=== PATIENT | female | born 2000 | race Caucasian/White ===

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

== ENCOUNTER 2023-12-14 01:03 | Inpatient (IN) ==
[2023-12-14] MEDS ORDERED: LIDOCAINE 1% LOCAL 20 ML VIAL INFIL PRN (02:09)
[2023-12-14] MEDS ORDERED: OXYTOCIN 30 UNITS/NSS 30 UNITS/500 ML BAG IV PRN ×2 (02:09→12:16)
[2023-12-14] MEDS ORDERED: ACETAMINOPHEN 500 MG TAB PO PRN (02:09)
--- NOTE | 2023-12-14 02:15 | History & Physical Report ---
Date of Service December 14, 2023 Assessment & Plan (1) LGA (large for gestational age) fetus affecting management of mother: (2) Carrier of group B Streptococcus: (3) Marijuana use during : Plan 23 yo G1 at 38 wga presents w/ prom VSS Fetus cat 1 PROM - discussed pitocin vs expectant mgt, pt accepts GBS+, pcn ordered UDS ordered epidural prn History of Present Illness Chief Complaint: LOF Primary Care Provider: Ivonne Kitchen MD 23 yo G1 at 38 wga presents w/ LOF since 1045. 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 denies hx stis Allergies Allergy/AdvReac Type Severity Reaction Status Date / Time No Known Drug Allergies Allergy Unknown Verified 12/14/23 01:26 Home Medications Medication Instructions Recorded Confirmed Type vit 122-ferrous fumarate 1 tab PO DAILY 09/15/23 12/14/23 History 27 mg iron-folic acid 800 mcg tablet ( Multi) Patient History Medical History COVID-19 (04/2020) COVID-19 (08/2021) Congestion of nasal sinus Anxiety took zoloft for a short time about 2years ago Acetaminophen overdose Intentional acetaminophen overdose Surgical History S/P wisdom tooth extraction Family History Father Hypertension Grandfather (Maternal) Prostate cancer Grandmother (Maternal) Skin cancer Grandmother (Paternal) Breast cancer Mother Alcoholism Other Attention deficit COPD (chronic obstructive pulmonary disease) Social History Smoking Status: Former smoker Tobacco Type: E-cigarettes / Vaping Second Hand Exposure: No; Do You Dip or Chew Tobacco: No; Hx Alcohol Use: No Hx Substance Use: Yes Prescribed Medications: Marijuana Last Used Substance: D ays (ago) Last Used Substance Other:: 2x per week Preferred Language: Turkish Communication Ability: Effective Sharples Machine Operator Required: No Beliefs That Will Affect Care: None marital status: Single marital status details: Kaitlin Holme Rocael (27) [phone] Current Living Situation: Significant Other Current Living Situation Comment: with FOB current occupational status: employed current occupation: [employer] Other Information That Helps Us Care for You: No Feels Safe at Home: Yes Safety Concerns: Feels Safe At This Time Assistive Devices: None Physical Exam Genitourinary: OB Exam Abdomen: + vertex and + estimated weight (7-8) Manual OB Exam: + cervical dilation 1 cm, + cervical effacement 90%, + station - 2 and + amniotic fluid (+nitrazine, pooling, ferning) OB Exam Monitor Tracing: + external FHT monitor used, + external uterine monitor used (q3) and + category I (140/mod/+accel/-decel) Results & Data Vital Signs (Past 12 Hours) Vital Signs Temp Pulse Resp BP O2 Del Method 12/14/23 01:31 98.4 F 18 Room Air 12/14/23 01:28 98.4 F 89 18 134/84 Laboratory Results OB Labs: Blood Type A Positive 07/14/23 Antibody Screen NEGATIVE 07/14/23 Hgb 10.7 g/dl (12.0-16.0) L 10/13/23 Hct 33.8 % (37.0-47.0) L 10/13/23 MCV 89.5 fL (80.0-100.0) 07/14/23 Plt Count 210 K/uL (130-400) 07/14/23 Rubella IgG Antibody Immune (Immune) 07/14/23 RPR Nonreactive (Nonreactive) 07/14/23 Hep Bs Antigen NON-REACTIVE (NON-REACTIVE) 07/14/23 Hepatitis C Ab (EIA) NON-REACTIVE (NON-REACTIVE) 07/14/23 HIV (1&2) Ag & Ab Conf NON-REACTIVE (NON-REACTIVE) 07/14/23 Glucose 1 Hr 50 gm 118 mg/dl (70-130) 10/13/23 OB Optional Labs: Chlamydia trachomatis RNA Not Detected (NotDetected) 07/14/23 Neisseria gonorrhoeae RNA Not Detected (NotDetected) 07/14/23 Thyroid Stimulating Hormone (TSH) 0.824 uIu/ml (0.300-4.500) 12/03/22 Diagnostic Findings 9/ EFW 93%, AC 98%, post plac Coding Level of Care Code None Diagnoses LGA (large for gestational age) fetus affecting management of mother O36.60X0 Carrier of group B Streptococcus Z22.330 Marijuana use during O99.320; F12.90
[2023-12-14] MEDS: LACTATED RINGER'S 1,000 ML IV PRN (02:20)
[2023-12-14] MEDS: PENICILLIN GK 6 MU in DEXTROSE 5% 250 ML IV STA (02:39)
[2023-12-14] MEDS: OXYTOCIN 30 UNITS/NSS 30 UNITS/500 ML BAG IV PRN (02:54)
[2023-12-14] MEDS: BUTORPHANOL TARTRATE 2 MG/ML VIAL IV PRN (02:55)
[2023-12-14 03:00] LABS: Hematocrit (blood only) 35.8 % (37.0-47.0); Hemoglobin 11.3 g/dl (12.0-16.0); Mean Corpuscular Hemoglobin 25.5 pg (25.0-34.0); Mean Corpuscular Hgb Conc 31.6 g/dL (32.0-36.0); Mean Corpuscular Volume 80.8 fL (80.0-100.0); Platelet Count 230 K/uL (130-400); RDW Coefficient of Variation 13.6 % (11.5-14.5); RDW Standard Deviation 40.1 fL (36.4-46.3); Red Blood Count 4.43 M/uL (4.20-5.40)
[2023-12-14 03:05] LABS: Amphetamines+Metham, Urine Neg (Neg); Barbiturates, Urine Neg (Neg); Benzodiazepine, Urine Neg (Neg); Cocaine, Urine Neg (Neg); Fentanyl, Urine Neg (Neg); MDMA (Ecstacy), Urine Neg (Neg); Marijuana, Urine Pos (Neg); Methadone, Urine Neg (Neg); Opiate, Urine Neg (Neg); Phencyclidine, Urine Neg (Neg)
[2023-12-14] MEDS: BUPIVACAINE 0.25% PF 30 ML VIAL ONE (04:55)
[2023-12-14] MEDS: LIDOCAINE 2%/EPINEPHRINE 1:200,000 20 ML PF ONE (04:55)
[2023-12-14] MEDS: fentANYL 2 MCG/ML BUPIVacaine 0.125%-NSS 100ML BAG ONE (04:57)
--- NOTE | 2023-12-14 05:02 | Anesthesiology Consultation ---
Date of Service December 14, 2023 Assessment & Plan Chart Review Chart Review: Acceptable Risk for Labor Epidural Consults Requested none History Height/Weight Height: 5 ft 7 in Weight: 86.183 kg Allergies Allergy/AdvReac Type Severity Reaction Status Date / Time No Known Drug Allergies Allergy Unknown Verified 12/14/23 01:26 Medications Home Medications Medication Instructions Recorded Confirmed Last Taken vit 122-ferrous fumarate 1 tab PO DAILY 09/15/23 12/14/23 Unknown 27 mg iron-folic acid 800 mcg tablet ( Multi) Active Medications Generic Name Dose Route Start Last Admin Trade Name Freq PRN Reason Stop Dose Admin Butorphanol Tartrate 1 mg 12/14/23 02:10 12/14/23 02:55 Butorphanol Tartrate 2 Mg/Ml Vial IV 1 mg Q1H PRN Administration Pain Oxytocin 30 units in 500 mls @ 2 mls/hr 12/14/23 02:09 12/14/23 02:54 Pitocin 30 Units/Nss IV 12/16/23 02:08 0.12 units/hr .Q24H PRN 2 mls/hr Labor Induction/Augmentation Administration Protocol 0.12 UNITS/HR Lactated Ringer's 1,000 mls @ 125 mls/hr 12/14/23 02:09 12/14/23 04:58 Lr IV 12/16/23 02:08 125 mls/hr .Q8H PRN Administration L&D Protocol Protocol Past Medical History Medical History COVID-19 (04/2020) COVID-19 (08/2021) Congestion of nasal sinus Anxiety took zoloft for a short time about 2years ago Acetaminophen overdose Intentional acetaminophen overdose Past Family History Family History Father Hypertension Grandfather (Maternal) Prostate cancer Grandmother (Maternal) Skin cancer Grandmother (Paternal) Breast cancer Mother Alcoholism Other Attention deficit COPD (chronic obstructive pulmonary disease) Past Surgical History Surgical History S/P wisdom tooth extraction Social History Smoking Status: Former smoker tobacco type: e-cigarettes Do You Dip or Chew Tobacco: No Hx Alcohol Use: No Hx Substance Use: Yes substance use type: marijuana Last Used Substance: Days (ago) Last Used Substance Other:: 2x per week Physical Exam Vital Signs Last Vital Signs Temp 36.4 C L 12/14/23 04:39 Pulse 107 H 12/14/23 05:01 Resp 18 12/14/23 04:39 BP 117/67 12/14/23 05:01 Pulse Ox 100 12/14/23 04:59 O2 Del Method Room Air 12/14/23 01:31 Testing Laboratory Results 12/14/23 02:39
[2023-12-14] MEDS ORDERED: ROPIVACAINE 0.5% PF 5 MG/ML 20 ML VIAL EPI PRN (05:04)
[2023-12-14] MEDS ORDERED: fentaNYL citrate PF 100 MCG/2 ML VIAL EPI PRN (05:04)
[2023-12-14] MEDS ORDERED: LIDOCAINE 2% MPF LOCAL 5 ML VIAL EPI PRN (05:04)
[2023-12-14] MEDS ORDERED: diphenhydrAMINE 50 MG/ML VIAL IV PRN (05:04)
[2023-12-14] MEDS ORDERED: NALBUPHINE HCL INJ 10 MG/ML AMP IV PRN (05:04)
[2023-12-14] MEDS ORDERED: NALOXONE HCL 1 MG in SODIUM CHLORIDE 0.9% 1,000 ML IV PRN (05:04)
[2023-12-14] MEDS ORDERED: BUPIVACAINE 0.25% PF 30 ML VIAL EPI PRN (05:04)
[2023-12-14] MEDS ORDERED: NALOXONE HCL 0.4 MG/1 ML VIAL/CARP IV PRN (05:04)
[2023-12-14] MEDS ORDERED: ePHEDrine sulfate 50 MG/ML AMP IV PRN (05:04)
[2023-12-14] MEDS ORDERED: fentANYL 2 MCG/ML BUPIVacaine 0.125%-NSS 100ML BAG EPI PRN (05:04)
[2023-12-14] MEDS ORDERED: SODIUM CHLORIDE 0.9% PF INJ 10 ML VIAL EPI PRN (05:04)
[2023-12-14] MEDS: fentaNYL citrate PF 100 MCG/2 ML VIAL ONE (05:05)
[2023-12-14] MEDS: SODIUM CHLORIDE 0.9% PF INJ 10 ML VIAL ONE (05:06)
[2023-12-14] MEDS: ePHEDrine sulfate 50 MG/ML AMP ONE (05:06)
[2023-12-14] MEDS: BUPIVACAINE 0.25% PF 30 ML VIAL EPI STA (05:22)
[2023-12-14] MEDS: fentaNYL citrate PF 100 MCG/2 ML VIAL EPI STA (05:22)
[2023-12-14] MEDS: LIDOCAINE 2%/EPINEPHRINE 1:200,000 20 ML PF EPI STA (05:22)
[2023-12-14] MEDS: SODIUM CHLORIDE 0.9% PF INJ 10 ML VIAL EPI STA (05:23)
[2023-12-14] MEDS: ONDANSETRON INJ 2 MG/ML 2 ML VIAL IV PRN (05:31)
[2023-12-14] MEDS: PENICILLIN GK 3 MU in DEXTROSE 5% 100 ML IV PRN (06:10)
--- NOTE | 2023-12-14 07:50 | Labor Progress Brief Note ---
Date of Service December 14, 2023 Subjective comfortable w/ epidural Assessment & Plan (1) LGA (large for gestational age) fetus affecting management of mother: (2) Carrier of group B Streptococcus: (3) Marijuana use during : Plan 23 yo G1 at 37 wga presents w/ prom VSS Fetus cat 1 PROM - good progress on pit GBS+, pcn ordered UDS ordered epidural in place Admission and Anticipated Discharge Date Admission Date: December 14, 2023 Physical Exam Genitourinary: Manual OB Exam: + cervical dilation (5-6), + cervical effacement 90% and + station 0 OB Exam Monitor Tracing: + external FHT monitor used, + external uterine monitor used (q2-5) and + category I (120/mod/+accel/-decel) Results & Data Vital Signs (Past 12 Hours) Vital Signs Temp Pulse Resp BP Pulse Ox O2 Del Method 12/14/23 07:44 91 H 100 12/14/23 07:39 88 100 12/14/23 07:34 94 H 100 12/14/23 07:33 91 H 131/83 12/14/23 07:29 85 100 12/14/23 07:24 90 100 12/14/23 07:19 96 H 122/78 100 12/14/23 07:14 100 H 100 12/14/23 07:09 95 H 100 12/14/23 07:04 97.9 F 112 H 20 132/88 96 12/14/23 06:59 120 H 100 12/14/23 06:54 85 100 12/14/23 06:49 83 100 12/14/23 06:48 90 120/74 12/14/23 06:44 82 100 12/14/23 06:39 87 100 12/14/23 06:34 82 100 12/14/23 06:33 82 113/71 12/14/23 06:30 18 12/14/23 06:30 18 12/14/23 06:29 82 100 12/14/23 06:24 83 100 12/14/23 06:19 85 117/73 100 12/14/23 06:14 86 100 12/14/23 06:09 97 H 100 12/14/23 06:06 18 12/14/23 06:06 18 12/14/23 06:04 100 12/14/23 06:04 93 H 12/14/23 06:04 86 118/73 12/14/23 05:59 82 100 12/14/23 05:54 83 100 12/14/23 05:49 87 100 12/14/23 05:48 87 117/75 12/14/23 05:45 18 12/14/23 05:45 18 12/14/23 05:44 85 100 12/14/23 05:39 89 100 12/14/23 05:34 100 12/14/23 05:34 80 12/14/23 05:34 86 116/75 12/14/23 05:29 107 H 100 12/14/23 05:24 81 99 12/14/23 05:19 97 H 106/60 100 12/14/23 05:14 106 H 99 12/14/23 05:09 96 H 100 12/14/23 05:04 141 H 99 12/14/23 05:03 93 H 114/68 12/14/23 05:01 107 H 117/67 12/14/23 04:59 100 12/14/23 04:59 99 H 12/14/23 04:59 94 H 109/67 12/14/23 04:57 96 H 116/73 12/14/23 04:55 92 H 121/76 12/14/23 04:54 92 H 100 12/14/23 04:53 89 124/81 12/14/23 04:51 91 H 129/84 12/14/23 04:49 94 H 126/81 100 12/14/23 04:44 102 H 100 12/14/23 04:39 18 12/14/23 04:39 97.5 F L 18 12/14/23 04:39 100 12/14/23 04:39 105 H 12/14/23 04:39 101 H 135/85 12/14/23 04:34 108 H 99 12/14/23 04:29 111 H 100 12/14/23 04:24 91 H 100 12/14/23 04:19 118 H 97 12/14/23 04:14 78 97 12/14/23 04:09 86 99 12/14/23 04:04 106 H 99 12/14/23 03:58 120 H 99 12/14/23 03:53 101 H 99 12/14/23 03:48 98 H 99 12/14/23 03:43 98 09/08/24 03:38 85 96 12/14/23 03:33 98 H 97 12/14/23 03:28 82 96 12/14/23 03:23 96 H 97 12/14/23 03:18 86 96 12/14/23 03:13 95 H 97 12/14/23 03:08 89 96 12/14/23 03:03 95 12/14/23 03:03 85 12/14/23 03:03 89 94 12/14/23 02:58 100 H 98 12/14/23 02:53 94 H 100 12/14/23 02:48 83 100 12/14/23 02:43 93 H 100 12/14/23 02:42 89 129/82 12/14/23 01:31 98.4 F 18 Room Air 12/14/23 01:28 98.4 F 89 18 134/84 Coding Level of Care Code None Diagnoses LGA (large for gestational age) fetus affecting management of mother O36.60X0 Carrier of group B Streptococcus Z22.330 Marijuana use during O99.320; F12.90
[2023-12-14] MEDS: METOCLOPRAMIDE HCL INJ 5 MG/ML 2 ML VIAL IV PRN (08:28)
[2023-12-14] MEDS ORDERED: HYDROCORTISONE ACETATE 25 MG SUPP PR PRN (12:16)
[2023-12-14] MEDS ORDERED: bisacodyL 10 MG SUPP PR PRN (12:16)
[2023-12-14] MEDS ORDERED: IBUPROFEN 600 MG TAB PO PRN (12:16)
[2023-12-14] MEDS ORDERED: BENZOCAINE 20% SPRY 85 APPLN/85 GM CAN EXT PRN (12:16)
--- NOTE | 2023-12-14 12:22 | Delivery Summary ---
Vaginal Delivery Summary Date of Service December 14, 2023 Vaginal Delivery Summary [facility] PREOPERATIVE DIAGNOSIS: 1. Single intrauterine at 37 wga 2. Premature rupture of membranes 3. GBS+ 4. Suspected LGA POSTOPERATIVE DIAGNOSIS: 1. Single intrauterine at 37 wga 2. Premature rupture of membranes 3. GBS+ 4. Suspected LGA 5. Delivered PROCEDURE: 1. Normal spontaneous vaginal delivery. SURGEON: Debra Segura MD ANESTHESIA: Epidural. QUANTITATIVE BLOOD LOSS: 65 mL FLUIDS: Continuous LR. URINE OUTPUT: 100cc by straight cath after COMPLICATIONS: None. CONDITION: Stable. INDICATIONS: 23 yo G1 at 37 wga presented for evaluation due to LOF and found to be SROM. She was started on penicillin for GBS+ status and pitocin. She received an epidural for pain control and progressed to complete and desired to push. FINDINGS: A viable female infant, weight pending with Apgars of 8 and 9 at 1 and 5 minutes respectively. SPECIMEN: Cord blood OPERATIVE REPORT: The patient progressed to 10 cm, 100% effaced and +2 station, pushed over intact perineum with anesthesia to deliver a viable female , weight and Apgars as above. Head of delivered in AMARI position. Nuchal cord was present but could not be reduced easily. Body and shoulders were delivered without difficulty. was delivered to maternal abdomen and nursing staff. Delayed cord clamping was performed for 60 seconds. Cord was clamped and cut. Cord blood was obtained. Placenta delivered spontaneously intact with 3-vessel cord. IV oxytocin and fundal massage were given for excellent hemostasis. Vagina, cervix, perineum, and placenta were inspected. A vaginal laceration and periclitoral laceration were repaired with 3-0 and 4-0 vicryl respectively, there was excellent hemostasis. Sponge and needle counts correct x2. No sponges were left behind. Mother and stable in immediate period. [facility] Vaginal Delivery Charge Vaginal Delivery Codes: 70147 global code for the antepartum, delivery, and post- Delivery Type Details: [facility]
--- NOTE | 2023-12-14 12:30 | Anesthesia Procedure Note ---
Date of Service December 14, 2023 Anesthesia Post Epidural Note Vital Signs Vital Signs: Temp Pulse Resp BP Pulse Ox O2 Del Method 36.6 C 109 H 20 125/58 L 98 Room Air 12/14/23 07:04 12/14/23 12:18 12/14/23 12:04 12/14/23 12:18 12/14/23 11:49 12/14/23 01:31 Notes Mental Status: alert / awake / arousable and participated in evaluation Nausea / Vomiting: adequately controlled Pain: adequately controlled Airway Patency, RR, SpO2: stable & adequate BP & HR: stable & adequate Hydration State: stable & adequate Epidural: Removed without complications Notes: Epidural catheter removed intact without redness, drainage or edema. Patient comfortable no complaints, 2x2 dressing and tape applied to site. Cindy TROY
[2023-12-14] MEDS: DIPHTHER/TETAN/PERTUS Vaccine (Tdap, Adol/Adult) 0.5mL IM ONE (13:13)
[2023-12-14] MEDS: DOCUSATE SODIUM 100 MG CAP PO SCH (20:24)
--- NOTE | 2023-12-15 05:34 | Obstetrical Progress Note ---
Date of Service December 15, 2023 Assessment & Plan (1) Carrier of group B Streptococcus: (2) Marijuana use during : (3) LGA (large for gestational age) fetus affecting management of mother: (4) Encounter for care and examination after delivery: Plan Pt is 23 yo post- day 1 s/p at 37w1d. complicated by GBS positive. Encourage ambulation and breast feeding Motrin PRN for pain control Monitor vitals and Hgb Upon discharge, pt to follow up with Dr. Segura in 6 weeks Admission and Anticipated Discharge Date Admission Date: December 14, 2023 Supervising Physician Co-Signing Physician Notes Resident Physician Supervision Note: I interviewed and examined the patient. Discussed with Dr. Ashraf and agree with findings and plan as documented in the note. Any exceptions or clarifications are listed here: doing well, continue routine care Documented By: Debra Segura MD Subjective Pt is 23 yo post- day 1 s/p at 37w1d. complicated by GBS positive. Ambulation:In and out of room Voiding:voiding normally Passing gas: yes BM: no Diet tolerance:regular diet Lochia:bloody, no clots Feeding type: breast Current pain level: 1-3 /10 not using motrin or tylenol Resting comfortably this morning in NAD. Denies MOORE, CP, SOB, N/V/D, LE pain/swelling. Review of Systems Review of Systems: As per HPI Physical Exam Constitutional: WD/WN, vitals as above Respiratory: normal respiratory effort, lungs clear to auscultation Cardiovascular: RRR, no murmur, no edema Gastrointestinal (Abdomen): normal bowel sounds, soft, nontender, no hepatosplenomegaly Uterine fundus firm and at level of umbilicus Neurologic: PERRL, EOMI, accommodation nl, no face palsy, no dysarthria Moving all 4 extremities on command Psychiatric: A+Ox3, euthymic affect Results & Data Vital Signs (Past 12 Hours) Vital Signs Temp Pulse Resp BP Pulse Ox O2 Del Method 12/15/23 03:03 36.9 C 90 18 130/79 98 Room Air 12/14/23 23:05 36.8 C 98 H 18 148/84 H 97 Room Air 12/14/23 19:50 37.1 C 107 H 18 146/78 H 98 Room Air Resident Activity Tracking Resident Involvement: Resident Care Provided Care Provided: Adult [facility]
[2023-12-15 06:15] LABS: Hemoglobin 10.5 g/dl (12.0-16.0); Mean Corpuscular Hemoglobin 25.7 pg (25.0-34.0); Mean Corpuscular Hgb Conc 31.8 g/dL (32.0-36.0); Mean Corpuscular Volume 80.7 fL (80.0-100.0); Mean Platelet Volume 10.6 fL (9.4-12.4); Platelet Count 192 K/uL (130-400); RDW Coefficient of Variation 13.8 % (11.5-14.5); RDW Standard Deviation 40.7 fL (36.4-46.3); Red Blood Count 4.09 M/uL (4.20-5.40); White Blood Count 15.76 K/ul (4.8-10.8)
[2023-12-15 06:30] LABS: Albumin Globulin Ratio 1.2 (0.9-2); Albumin Level 2.8 gm/dl (3.4-5.0); BUN Creatinine Ratio 11.3 (10-20); Bilirubin,Total 0.3 mg/dl (0.2-1.0); Calcium 8.4 mg/dl (8.6-10.3); Creatinine Clr Calc Pharmacy 160.5 ml/min; Est GFR (African American) 148.3 ml/min; Globulin 2.4 gm/dl (2.5-4.0); Total Protein 5.2 gm/dl (6.0-8.3)
[2023-12-15] MEDS: FERROUS SULFATE 325 MG TAB PO SCH (07:55)
[2023-12-15] MEDS: PRENATAL VITAMIN 1 TAB PO SCH (07:55)
[2023-12-15] MEDS: bisacodyL 5 MG TABEC PO SCH (20:36)
[2023-12-15 22:30] VITALS: RESP 18
[2023-12-15] MEDS: ACETAMINOPHEN 325 MG TAB PO PRN (23:45)
[2023-12-16 02:04] VITALS: O2SAT 95
--- NOTE | 2023-12-16 05:45 | Obstetrical Progress Note ---
Date of Service December 16, 2023 Assessment & Plan (1) Carrier of group B Streptococcus: (2) Marijuana use during : (3) LGA (large for gestational age) fetus affecting management of mother: (4) Encounter for care and examination after delivery: Plan Pt is 23 yo post- day 2 s/p at 37w1d. complicated by GBS positive. Encourage ambulation and breast feeding Motrin and Tylenol PRN for pain control Monitor vitals Pt to follow up with Dr. Segura in 6 weeks Discharge to home Admission and Anticipated Discharge Date Admission Date: December 14, 2023 Subjective Pt is 23 yo post- day 2 s/p at 37w1d. complicated by GBS positive. Ambulation:In and out of room Voiding:voiding normally Passing gas: yes BM: no Diet tolerance:regular diet Lochia:bloody, no clots Feeding type: breast Current pain level: 1-3 /10 not using Motrin or Tylenol Resting comfortably this morning in NAD. Denies MOORE, CP, SOB, N/V/D, LE pain/swelling. Review of Systems Review of Systems: As per HPI Physical Exam Constitutional: WD/WN, vitals as above Respiratory: normal respiratory effort, lungs clear to auscultation Cardiovascular: RRR, no murmur, no edema Gastrointestinal (Abdomen): normal bowel sounds, soft, nontender, no hepatosplenomegaly Uterine fundus firm cm below umbilicus Neurologic: PERRL, EOMI, accommodation nl, no face palsy, no dysarthria Psychiatric: A+Ox3, euthymic affect Results & Data Vital Signs (Past 12 Hours) Vital Signs Temp Pulse Resp BP Pulse Ox O2 Del Method 12/15/23 23:20 36.7 C 86 18 135/90 95 Room Air 12/15/23 20:45 36.8 C 88 18 141/90 H 98 Room Air
--- NOTE | 2023-12-16 06:57 | Labor Progress Brief Note ---
Date of Service December 16, 2023 Subjective Sleeping in bed with baby and FOB on my arrival. Requested not to be seen by resident or student today due to patient anxiety. BP overnight noted, somewhat borderline; again possible d/t anxiety, patient without s/sx gHTN this AM. Assessment & Plan (1) Encounter for care and examination after delivery: Plan: Wants to go home today. Will have 1wk BP check due to borderline pressures here on . Admission and Anticipated Discharge Date Admission Date: December 14, 2023 Physical Exam Constitutional: WD/WN, vitals as above Eyes: PERRL, conjunctivae normal, anicteric sclerae Neck: normal visual inspection Respiratory: normal respiratory effort and able to speak in complete sentences; no respiratory distress and no labored breathing Cardiovascular: Rate/Rhythm: regular rate and regular rhythm Extremities: no edema Chest (Breasts): Chest: normal inspection of chest Gastrointestinal (Abdomen): Inspection/Auscultation: abdomen normal to inspection Soft, postgravid Psychiatric: A+Ox3, euthymic affect Genitourinary: OB Exam Abdomen: + fundal height Fundus: + firm and + relation to umbilicus (fundus just below umbilicus); not tender Results & Data Vital Signs (Past 12 Hours) Vital Signs Temp Pulse Resp BP Pulse Ox O2 Del Method 12/15/23 23:20 98.1 F 86 18 135/90 95 Room Air 12/15/23 20:45 98.2 F 88 18 141/90 H 98 Room Air Coding Level of Care Code None Diagnoses Encounter for care and examination after delivery Z39.2
[2023-12-16 09:28] VITALS: BP 130/66; PULSE 79; TEMP 97.9
[2023-12-17 12:32] LABS: Marijuana Quant, GCMS Urine 128 ng/mL (<5)
== END 2023-12-16 14:20 | disposition home or self-care (01) | DRG 806 ==
LOC: OPB 01:03 → 4S1 01:08 → 4E2 14:45